=== PATIENT | male | born 1930 | race Caucasian/White ===

== ENCOUNTER 2018-04-13 05:15 | Inpatient (IN) ==
[2018-04-13] MEDS ORDERED: Chlorhexidine Gluconate 2% 1 Pack (2 Cloths) TOPICAL ONE (05:49)
[2018-04-13] MEDS ORDERED: Metoprolol Tartrate 25 MG Tablet PO ONE (05:49)
[2018-04-13] MEDS ORDERED: Insulin Regular (For Infusion) 100 UNIT in Sodium Chlor 0.9% Inj 99 ML IV.CONT PRN ×2 (05:51→15:00)
[2018-04-13] MEDS ORDERED: Dextrose 50% in Water 50 ML Vial IV.PUSH PRN ×2 (05:51→12:59)
[2018-04-13] MEDS ORDERED: Sodium Chlor 0.9% Inj 500 ML IV.SIG SCH (06:00)
[2018-04-13] MEDS ORDERED: Chlorhexidine 4% Topical 120 APPLIC/120 ML Bottle TOPICAL SCH (06:00)
[2018-04-13] MEDS ORDERED: Heparin - SQ 10,000 UNITS/ML Vial ONE (06:11)
[2018-04-13] MEDS ORDERED: ceFAZolin 2 GM Premix Inj 2 GM/50 ML PIGGYBACK IV.SIG ONE (06:12)
[2018-04-13 06:51] LABS: INR 1.1 Ratio; Prothrombin Time 11.6 sec (9.8-11.6)
[2018-04-13] MEDS ORDERED: CUST1000P IRRIGATION ONE (07:01)
[2018-04-13] MEDS ORDERED: Albumin Human 25% Inj 50 ML IV.SIG ONE (07:02)
[2018-04-13] MEDS ORDERED: Heparin 10,000 UNITS/10 ML Vial (for IV use) ONE (07:03)
[2018-04-13] MEDS ORDERED: Calcium Chloride Inj 1 GM/10 ML Syringe IV.CONT ONE (07:40)
[2018-04-13] MEDS ORDERED: Sodium Chlor 0.9% Inj 200 ML IV.CONT ONE (07:40)
[2018-04-13] MEDS ORDERED: Lidocaine PF 1% Inj 5 ML Syringe OTHER ONE (07:40)
[2018-04-13] MEDS ORDERED: Sodium Chlor 0.9% Inj 250 ML IV.CONT ONE (07:40)
[2018-04-13] MEDS ORDERED: Aminocaproic Acid Inj 5,000 MG/20 ML Vial IV.CONT ONE (07:40)
[2018-04-13] MEDS ORDERED: Phenylephrine/NS 1000 MCG/10ML Syringe IV.PUSH ONE (07:40)
[2018-04-13] MEDS ORDERED: Protamine Sulfate Inj 250 MG/25 ML Vial IV.CONT ONE (07:40)
[2018-04-13] MEDS ORDERED: Heparin - SQ 10,000 UNITS/ML Vial OTHER ONE (07:40)
[2018-04-13] MEDS ORDERED: Dexmedetomidine Inj 200 MCG/2 ML Vial IV.CONT ONE (07:40)
[2018-04-13] MEDS ORDERED: Normosol-R pH 7.4 Inj 2,000 ML IV.CONT ONE (07:40)
[2018-04-13] MEDS ORDERED: Sodium Chloride 0.9% Irr Bot 500 ML, ceFAZolin Inj 500 MG IRRIGATION ONE ×2 (09:00)
[2018-04-13] MEDS ORDERED: ceFAZolin 2 GM Premix Inj 2 GM/50 ML PIGGYBACK IV.SIG SCH (09:00)
[2018-04-13] MEDS ORDERED: Morphine Sulfate Inj 2 MG/ML Vial IV.PUSH PRN (12:59)
[2018-04-13] MEDS ORDERED: Metoprolol Inj 5 MG/5 ML Vial IV.PUSH PRN (12:59)
[2018-04-13] MEDS ORDERED: Dexmedetomidine Inj 200 MCG in Sodium Chlor 0.9% Inj 48 ML IV.CONT PRN (12:59)
[2018-04-13] MEDS ORDERED: fentaNYL Citrate Inj 100 MCG/2 ML Ampul IV.PUSH PRN (12:59)
[2018-04-13] MEDS ORDERED: Post-op Orders (for Pharmacy) OTHER STA (12:59)
[2018-04-13] MEDS ORDERED: RESP: Racemic Epinephrine 2.25% 0.5 ML Neb NEB PRN (12:59)
[2018-04-13] MEDS ORDERED: Acetaminophen 325 MG Tablet PO PRN (12:59)
[2018-04-13] MEDS ORDERED: Calcium Chloride Inj 1 GM/10 ML Syringe IV.PUSH PRN (12:59)
[2018-04-13] MEDS ORDERED: Magnesium Sulfate Inj 2 GM in Sodium Chlor 0.9% Inj 96 ML IV.SIG PRN ×4 (12:59)
[2018-04-13] MEDS ORDERED: Potassium Chlor 20 mEq Premix 20 MEQ/100 ML PIGGYBACK IV.SIG PRN ×2 (12:59)
[2018-04-13] MEDS ORDERED: EPINEPHrine (1:1000) Inj 2 MG in Sodium Chlor 0.9% Inj 248 ML IV.CONT PRN (12:59)
[2018-04-13] MEDS ORDERED: Clevidipine Inj 25 MG/50 ML VIAL IV.CONT PRN (14:00)
[2018-04-13] MEDS ORDERED: fentaNYL Citrate Inj 250 MCG/5 ML Ampul ONE (14:05)
[2018-04-13] MEDS: Potassium Chlor 20 mEq Premix 20 MEQ/100 ML PIGGYBACK IV.SIG PRN ×3 (14:09→17:46)
--- NOTE | 2018-04-13 14:19 | XR ---
EXAM DATE: 04/13/2018 2:15 PM EST AGE/SEX: 87 years / Male INDICATIONS: Status post heart surgery with intubation. CLINICAL DATA: This is the patient's initial encounter. Patient reports that signs and symptoms have been present for 1 day and indicates a pain score of Nonresponsive. MEDICAL/SURGICAL HISTORY: Hypertension. None. COMPARISON: [facility] – [place], CHEST 2V PA&LAT, 04/10/2018. . FINDINGS: 2 AP supine portable views of the chest were obtained and demonstrate the patient is status post inte rval median sternotomy. Patient has been intubated with the endotracheal tube tip approximately 3 cm above the yunior. A nasogastric tube has been placed and is seen coursing through the esophagus into the stomach. There is been placement of a left internal jugular central venous line with the tip proj ected over the superior vena cava. There is no pneumothorax. The heart size is at the upper limits of normal and there are no confluent infiltrates or effusions. Atherosclerotic changes are again noted in the aorta. CONCLUSION: 1. Status post intubation and placement of left internal jugular central venous line with no pneumot horax. 2. Postoperative changes status post median sternotomy with no acute cardiopulmonary changes. Electronically signed by: Allen Dennis MD Board Certified Radiologist 04/13/2018 2:18 PM EST
--- NOTE | 2018-04-13 14:28 | P.PNCV ---
- Note Subjective/Hospital Course: 87yr old male , seen in office by Dr Ortiz 03/27/18, hx of mitral and tricuspid insufficiency. Recent Cath heart cath revealed normal coronaries. Initially evaluated in July 2016for progressive symptoms of fatigue and cough PMH: AFib, GERD, HTN, valvular heart disease, HTN, HLP, Pulm HTN, DM Type 2 pt was electively admitted for surgery Objective: Vital Signs - 24 hr 04/13/18 06:37 04/13/18 14:03 Temperature 98.2 F Pulse Rate 82 Respiratory Rate 10 L Blood Pressure 115/74 Pulse Oximetry 98 96 Labs: Laboratory Results - last 12 hr 04/13/18 04/13/18 04/13/18 05:46 06:15 06:30 PT 11.6 INR 1.1 Blood Type O Positive Blood Type Recheck Not needed Antibody Screen Negative MTS Gel Crossmatch See Detail
--- NOTE | 2018-04-13 14:34 | P.DCO ---
- Diagnosis (1) Atrial fibrillation Status: Chronic (2) Diabetes mellitus Status: Chronic (3) GERD (gastroesophageal reflux disease) Status: Chronic (4) Mitral valve prolapse Status: Chronic (5) S/P MVR (mitral valve replacement) Status: Acute (6) S/P left atrial appendage ligation Status: Acute (7) S/P tricuspid valve repair Status: Acute - Home Health Nursing Order: Medical education, Signs/symptoms of disease process, Diabetic education , Wound care and dressing changes, Nursing assessment with vital signs Instructions: PREVENA Single Use Negative Wound Therapy System Caregiver Instruction Sheet 1. A Prevena dressing system was applied to the chest incision during surgery , to promote wound healing. It works via a suction device (negative pressure wound therapy) to remove low to moderate levels of exudate (drainage) and infectious materials. We recommend that the device stay in place for up to seven days, from day of surgery. 2. Day of Surgery____2/ Day of Removal ___/09/01 3. The dressing should only be removed by a health manager wound care. Please arrange removal of device to coincide with Home Health visit and or with Nursing staff at Rehab 4. If skin reddening or irritation of skin occurs, or excessive drainage, please notify the Cardiovascular Surgeons office at [phone]. 5. Light showering is permissible; however the pump should be disconnected and placed in safe location, where it will not get wet. The dressing should not be exposed to direct spray or submerged in water. No bath tub / shower only. Ensure the end of the tubing attached to the dressing is facing down so that water does not enter the top of the tube. 6. To remove Prevena dressing: press purple button to turn off device / remove the suction. Then disconnect the tubing from the pump. The fixation strips should be stretched away from the skin and the dressing lifted at one corner and peeled back until it has been fully removed. 7. After removal, it is ok to shower daily using liquid dial soap and clean wash cloth, rinse and pat dry, and leave incision open to air dry. For any concerns regarding Prevena dressing, and or wounds, please contact Agustina Wallace, patient navigator at [phone] or notify the Cardiovascular Surgeons office at [phone]. Heart and Vascular Surgery patients *Special attention to sternal dressing Mandatory frequency Assess and evaluation, 4 days in a row The next week 3X week 2 times a week for 4 weeks 1 time a week for 5 weeks Schedule Heart and Vascular patients for full 60 day certification period Initial visit Review Open Heart Surgery Discharge Instructions (Sternal precautions, Activity, Elastic hose, Incision care, Driving, Incentive spirometry, Smoking, [place], Work and other) Need Betadine to paint incision Medication reconciliation Importance of follow up care/ check on appointments Make calendar record temperature daily When to call [facility] at Home nurse, review instructions, phone list Incentive Spirometry, demonstration Visit 1- Begin discharge instruction for patient family and/ or caregiver using teach back method- Signs and symptoms of infection Disease characteristics Medicines and side effects Foods and nutrition/ appetite Infection control/ hand washing/ hygiene Visit 2- Continue teaching Discharge instructions- include additional information on smoking cessation , sternal dressing (sternal vac) Visit 3- Continue teaching- Cough and deep breathing, incision monitoring. Choose my plate Visit 4- Continue teaching- Discuss limitations Discuss how they are feeling Discuss progress toward goals Remaining visits- continue teaching and monitoring For any questions please call : Tuesday 8am-5pm Heart & Vascular Surgery Office ( Dr. Solomon & Dr. Agosto), After Hours / Nights (5pm -8am) Weekends and Holidays Please call [facility] Cardiac Intermediate Care Unit (CIC) Charge Nurse Incentive spirometry Q1 hr x 10, while awake, also use acapella device hourly whole awake Sternal Breast Bone Precautions: NO pushing or pulling, ( pt must use sternal pillow to support chest with all activities and with coughing ( takes up to 3 months breast bone to heal ) Daily incision care: ok to shower daily, no tub bath. Wash all incisions with liquid dial soap, clean wash cloth to each site, rinse and pat dry. Observe for any signs of infection, such as drainage which is dark yellow, garcia, green or foul smelling. Immediately report to the surgeon any drainage from the chest incision, or legs, and for any abnormal drainage from the chest tube sites. Notify surgeon if any temp >101.5 degrees F. When specialty dressing removed/ or if you do not have one, continue to shower daily as above, then rinse and pat incision dry and paint with betadine daily x 5 days. Allow steri strips to fall off if you have any. Avoid lotions, creams, salves, oils, etc. for the first month Please see attached forms for additional instructions regarding post Open Heart specialty wound vacuum dressings. FRANCISCA or Prevena , Dressing to be removed by Nursing staff on ___04/20/18____ F/U appointment: as per DC instructions: PCP in 2 weeks, CV surgeon 2 weeks, Silk Spotter 3-4 weeks For any questions regarding incisions/ dressing / meds / post op care or above Symptoms, Tuesday 8am-5pm Heart & Vascular Surgery Office ( Dr. Solomon & Dr. Agosto), After Hours / Nights (5pm -8am) Weekends and Holidays Please call [facility] Cardiac Intermediate Care Unit (CIC) Charge Nurse - Case Management Consult Case Management Consult-Home Health: Yes - Certification I have seen patient Topher Soriano on 04/13/18. My clinical findings support the need for the requested home health care services because: Deconditioned with increased weakness I certify that my clinical findings support that this patient is homebound because: Post-op weakness (2) Diabetes mellitus Qualifiers: Diabetes mellitus type: type 2
--- NOTE | 2018-04-13 14:42 | P.OP ---
Date of procedure: 04/13/18 Anesthesia: HENRIETTAA Surgeon: Jessica Solomon MD Operation and Findings: PREOPERATIVE DIAGNOSES 1. Severe Mitral Insufficiency 2. Moderate Tricuspid Insufficiency 3. Chronic Atrial Fibrillation POSTOPERATIVE DIAGNOSES Same SURGICAL PROCEDURE 1. Mitral Valve Replacement with a 27 mm Medtronic Mosaic Tissue Valve. 2. Tricuspid Valve Repair with a 30 mm Contour 3D Medtronic Annuloplasty Ring 3. Left Atrial Appendage Excision 4. Right Femoral Artery Catheter elastic attacher chainstitch Tarah Jaime [facility] General endotracheal. AIR BRUSH ARTIST Gennaro Francois CRNA, Gregoria Aguayo MD PREPARATION ChloraPrep. NEEDLE, SPONGE AND INSTRUMENT COUNT Correct. DRAINS Two 32-Icelandic mediastinal tube. COMPLICATIONS None. INDICATIONS The patient is an 87-year-old with severe mitral regurgitation moderate tricuspid insufficiency, presenting for surgical correction of the above pathology. DESCRIPTION OF PROCEDURE The patient was brought to the operating room and placed supine on the OR table. Following the induction of adequate general endotracheal anesthesia and placement of appropriate monitoring devices, the patient was then prepped and draped in the standard sterile fashion. Median sternotomy was performed, the pericardium was divided in the midline and the cradle created. The patient was systemically heparinized and anticoagulation monitored by serial ACT measurements. Then 2 pursestring sutures of 2-0 Ethibond were placed on the aorta proximal to the takeoff of the innominate artery, a purse-string of 4-0 Prolene was placed on the superior vena cava and a final 2-0 Ethibond was placed on the right atrium for the inferior vena cava. At this point, aortic and venous cannulae were introduced and attached to the arterial and venous components of the bypass circuit respectively. Antegrade cardioplegia cannula was also placed. The patient was placed on cardiopulmonary bypass and core cooling initiated to a temperature of 34 degrees centigrade. The left atrial appendage was then excised using the surgical stapler device. The crossclamp was applied and 1800 mls of antegrade cardioplegia solution ( Assisted HTK) was given in addition to topical cooling with slushed saline. Upon achieving adequate diastolic arrest of the heart a right atriotomy was performed. Transeptal approach to the mitral valve was taken. 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 The leaflets were additionally very myxomatous with associated annular calcification. Therefore plans were made to proceed with replacement of the mitral valve. The anterior leaflet and all of its chordae were preserved as was the posterior leaflet. Horizontal mattress sutures of interrupted 2-0 Ethibond were placed on the mitral annulus with pledgets on the atrial side. After adequate sizing, a 27 mm Medtronic mosaic tissue Mitral valve was brought in the surgical field and the sutures passed through the skirt and the valve was situated and anchored with the Cor-Knot device. This appeared to be a good fit. The septum closed closed in 2 layers. This was with 4-0 Prolene; the 1st layer being horizontal mattress, the 2nd layer being running baseball stitch. Attention was then turned towards the tricuspid valve. Saline and injection revealed moderate insufficiency. Interrupted 2 Ethibond sutures were then placed circumferentially onto the tricuspid annulus with care being taken to spare half of the septal annulus from the anteroseptal commissure to the mid aspect of the septal annulus. After adequate sizing, a 30 mm Contour 3D Medtronic annuloplasty band was brought into the field and the sutures passed through it. This was seated using core knots. Following completion of this, saline testing revealed no evidence of any residual tricuspid insufficiency. Gradual rewarming was initiated and the right atrium was closed in two layers of 4-0 Prolene. The cross clamp was removed and upon achieving normothermic cardiac activity, patient was weaned from CPB without any difficulty. Transesophageal echocardiography revealed a well-situated mitral prosthesis with no evidence of perivalvular leak and no mitral stenosis or regurgitation as well as satisfactory repair of the tricuspid valve with no residual insufficiency. Protamine was given. Decannulation was performed and all sites were inspected for hemostasis. At this point the closure was undertaken. The pericardium was reapproximated in the midline. One 32-Fr chest tube was placed, and the sternum was reapproximated using stainless steel sternal wires. Due to dampening of the radial arterial line, at this point a right femoral 5 Icelandic sheath was placed using the standard Seldinger technique to monitor arterial blood pressure. The musculo-fascial layer was then closed in 3 layers. The patient tolerated the procedure well and was transferred to open heart recovery in stable condition.
[2018-04-13] MEDS ORDERED: Calcium Chloride Inj 1 GM in Sodium Chlor 0.9% Inj 100 ML IV.SIG PRN (15:00)
[2018-04-13] MEDS: Ketorolac Inj 30 MG/ML (IVP) Vial IV.PUSH PRN (16:39)
[2018-04-13] MEDS: Albumin Human 5% Inj 250 ML IV.SIG PRN ×2 (17:07→20:01)
[2018-04-13] MEDS: ceFAZolin 2 GM Premix Inj 2 GM/50 ML PIGGYBACK IV.SIG SCH (21:53)
[2018-04-14] MEDS: Ketorolac Inj 30 MG/ML (IVP) Vial IV.PUSH PRN (00:43)
[2018-04-14] MEDS: ceFAZolin 2 GM Premix Inj 2 GM/50 ML PIGGYBACK IV.SIG SCH ×3 (04:19→21:09)
[2018-04-14 05:14] LABS: Hematocrit 26.1 % (39.0-51.0); Mean Corpuscular HGB Conc 34.4 % (32.0-36.0); Mean Corpuscular Hemoglobin 31.3 pg (27.0-34.0); Mean Corpuscular Volume 90.9 fL (80.0-100.0); Mean Platelet Volume 9.9 fL (7.0-11.0); Platelet Count 84 th/mm3 (150-450); Red Blood Count 2.87 mil/mm3 (4.50-5.90); Red Cell Distribution Width 14.8 % (11.6-17.2); White Blood Count 5.7 th/mm3 (4.0-11.0)
[2018-04-14 05:34] LABS: Anion Gap 11 meq/L (5-15); Blood Urea Nitrogen 23 mg/dL (7-18); Calcium 8.5 mg/dL (8.5-10.1); Carbon Dioxide 22.5 meq/L (21.0-32.0); Chloride 112 meq/L (98-107); Glomerular Filtration Rate Greater Than 89 mL/min (>89); Glucose,Random 72 mg/dL (74-106); Magnesium 2.4 mg/dL (1.5-2.5); Sodium 145 meq/L (136-145)
--- NOTE | 2018-04-14 06:47 | XR ---
EXAM DATE: 04/14/2018 5:56 AM EST AGE/SEX: 87 years / Male INDICATIONS: Post op CABG. CLINICAL DATA: This is the patient's subsequent encounter. Patient reports that signs and symptoms h ave been present for 2 days and indicates a pain score of 5/10. MEDICAL/SURGICAL HISTORY: Hypertension. None. COMPARISON: [facility] [place]ST 1V SINGLE AP, 04/13/2018. . FINDINGS: Left central line in superior vena cava. 2 mediastinal drains present centrally. Mild basilar atelect asis. Previous CABG. CONCLUSION: Left central line in superior vena cava. Basilar atelectasis and scarring. Central chest tubes presen t without pneumothorax. Patient has been extubated. Electronically signed by: West Melgar MD Board Certified Radiologist 04/14/2018 6:46 AM EST
--- NOTE | 2018-04-14 08:07 | ECG ---
Date Performed: 04/14/2018 Time Performed: 03:57:26 PTAGE: 87 years EKG: Probable accelerated junctional rhythm. Leftward axis Possible inferior infarct - age undet ermined Low QRS voltages in limb leads Abnormal ECG PREVIOUS TRACING : 04/10/2018 12.23 Compared to previous tracing, accelerated junctional rhythm has replaced atrial fibrillation. DOCTOR: Chepe Mulligan Interpretating Date/Time 04/14/2018 08:06:40
[2018-04-14] MEDS ORDERED: Dextrose 50% in Water 50 ML Vial IV.PUSH PRN (09:04)
[2018-04-14] MEDS ORDERED: Bisacodyl 10 MG Supp RECTAL PRN (09:04)
[2018-04-14] MEDS ORDERED: Sod Phosphate/Sod Biphosphate (Adult) Enema 133 ML Bottle RECTAL PRN (09:04)
[2018-04-14] MEDS: Insulin NovoLOG Aspart Correctional Sugar Inj SQ SCH ×4 (10:12→22:04)
--- NOTE | 2018-04-14 10:15 | P.PNCV ---
- Note Subjective/Hospital Course: 87yr old male , seen in office by Dr Ortiz 03/27/18, hx of mitral and tricuspid insufficiency. Recent Cath heart cath revealed normal coronaries. Initially evaluated in July 2016for progressive symptoms of fatigue and cough PMH: AFib, GERD, HTN, valvular heart disease, HTN, HLP, Pulm HTN, DM Type 2 pt was electively admitted for surgery 04/13 PREOPERATIVE DIAGNOSES 1. Severe Mitral Insufficiency 2. Moderate Tricuspid Insufficiency 3. Chronic Atrial Fibrillation SURGICAL PROCEDURE 1. Mitral Valve Replacement with a 27 mm Medtronic Mosaic Tissue Valve. 2. Tricuspid Valve Repair with a 30 mm Contour 3D Medtronic Annuloplasty Ring 3. Left Atrial Appendage Excision 4. Right Femoral Artery Catheter Placement extubated after surgery crystalloid 3000cc, 500cc cell saver , EBL 1000cc off all pressors , remains in SB/ junctional rhythm BP stable will hold on any BP meds, no BB received dose of diuretic today / was on coumadin at home on simple mask / will need pulm toielting OOB later today, fem line dc this am may need rehab at discharge not " pt is very [place] " PLT 84 ( from 210) hold plavix today eval for transfer to stepdown later today Objective: Vital Signs - 24 hr 04/13/18 13:47 04/13/18 14:03 04/13/18 15:00 Temperature 97.0 F L 97 F L Pulse Rate 61 53 L Respiratory Rate 10 L 10 L 15 Blood Pressure 81/38 L 94/52 L Pulse Oximetry 98 96 99 04/13/18 15:55 04/13/18 16:30 04/13/18 16:50 Temperature Pulse Rate 61 Respiratory Rate 18 20 Blood Pressure Pulse Oximetry 98 95 04/13/18 19:00 04/13/18 21:09 04/13/18 21:13 Temperature 98.1 F Pulse Rate 62 59 L Respiratory Rate 14 20 Blood Pressure 100/55 L Pulse Oximetry 95 95 04/13/18 23:00 04/14/18 00:00 04/14/18 03:00 Temperature 98.1 F 98.5 F Pulse Rate 58 L 57 L Respiratory Rate 18 16 16 Blood Pressure 111/57 L 108/53 L Pulse Oximetry 96 95 04/14/18 04:01 04/14/18 06:00 04/14/18 07:00 Temperature 98.2 F Pulse Rate 53 L 56 L Respiratory Rate 16 18 Blood Pressure 124/56 L Pulse Oximetry 95 95 04/14/18 09:34 04/14/18 09:35 Temperature Pulse Rate 58 L Respiratory Rate 15 Blood Pressure Pulse Oximetry 94 L GENERAL: A&O x 3 , faint confusion , SKIN: Warm and dry. prevena dressing to chest HEAD: Normocephalic. EYES: No scleral icterus. No injection or drainage. NECK: Supple, trachea midline. No JVD or lymphadenopathy. CARDIOVASCULAR: Regular rate and rhythm without murmurs, gallops, or rubs. soft SM RESPIRATORY: Breath sounds equal bilaterally. No accessory muscle use. diminished in bases , chest tube to wall suction, no air leak / drained 110cc/ 12 hrs GASTROINTESTINAL: Abdomen soft, non-tender, nondistended. MUSCULOSKELETAL: No cyanosis, or edema. BACK: Nontender without obvious deformity. No CVA tenderness. Labs: Laboratory Results - last 12 hr 04/13/18 04/14/18 04/14/18 21:57 00:38 02:32 WBC RBC Hgb Hct MCV MCH MCHC RDW Plt Count MPV Sodium Potassium Chloride Carbon Dioxide Anion Gap BUN Creatinine Estimated GFR POC Glucose 103 120 H 72 Random Glucose Calcium Magnesium 04/14/18 04/14/18 04/14/18 04:20 04:20 06:24 WBC 5.7 RBC 2.87 L Hgb 9.0 L Hct 26.1 L MCV 90.9 MCH 31.3 MCHC 34.4 RDW 14.8 Plt Count 84 L D MPV 9.9 Sodium 145 Potassium 4.0 Chloride 112 H Carbon Dioxide 22.5 Anion Gap 11 BUN 23 H Creatinine 0.64 Estimated GFR Greater than 89 POC Glucose 101 Random Glucose 72 L Calcium 8.5 Magnesium 2.4 04/14/18 04/14/18 07:12 09:16 WBC RBC Hgb Hct MCV MCH MCHC RDW Plt Count MPV Sodium Potassium Chloride Carbon Dioxide Anion Gap BUN Creatinine Estimated GFR POC Glucose 97 106 Random Glucose Calcium Magnesium Result Diagrams: 04/14/18 04:20 04/14/18 04:20 Telemetry: SB/ junctional - Plan (1) Atrial fibrillation Plan: s/p left atrial appendage excision (2) Diabetes mellitus Plan: start home meds in am (5) S/P MVR (mitral valve replacement) Plan: on coumadin at home may need to resume after chest tubes removed, will discuss with Dr Solomon Neuro: Awake has a sense of humor, very [place] ? mild confusion CV: Junctional/ SB gentle diuresis weaned off pressors last night hold on resuming home BP meds Resp: pulm toileting Nebs, ezpap wean 02 as tolerated GI: PPI GI motility meds Endo: resume home diabetic meds in am CM: eval possible rehab at discharge (2) Diabetes mellitus Qualifiers: Diabetes mellitus type: type 2
--- NOTE | 2018-04-14 11:18 | P.DIET ---
Nutritional Evaluation Screening comments: MDC for diet education s/p MVR (04/13) received. Patient Navigator to provide education. Consult RD if complexities with diet education arise.
[2018-04-14] MEDS: Polyethylene Glycol 3350 17 GM Packet PO SCH (15:21)
[2018-04-14] MEDS: Docusate Sodium 100 MG Capsule PO SCH (21:10)
[2018-04-15] MEDS: Insulin NovoLOG Aspart Correctional Sugar Inj SQ SCH ×5 (03:16→20:53)
[2018-04-15 04:53] LABS: Baso % (Auto) 0.2 % (0.0-2.0); Eos % (Auto) 0.1 % (0.0-4.0); Hematocrit 27.5 % (39.0-51.0); Hemoglobin 9.7 gm/dL (13.0-17.0); Lymph # (Auto) 0.6 th/mm3 (1.0-4.8); Lymph % (Auto) 8.3 % (9.0-44.0); Mean Corpuscular HGB Conc 35.1 % (32.0-36.0); Mean Corpuscular Hemoglobin 32.6 pg (27.0-34.0); Mean Corpuscular Volume 92.9 fL (80.0-100.0); Mean Platelet Volume 9.3 fL (7.0-11.0); Mono % (Auto) 12.6 % (0.0-8.0); Neut # (Auto) 6.1 th/mm3 (1.8-7.7); Neut % (Auto) 78.8 % (16.0-70.0); Platelet Count 93 th/mm3 (150-450); Red Blood Count 2.96 mil/mm3 (4.50-5.90); Red Cell Distribution Width 15.1 % (11.6-17.2); White Blood Count 7.7 th/mm3 (4.0-11.0)
[2018-04-15 05:06] LABS: Anion Gap 4 meq/L (5-15); Blood Urea Nitrogen 27 mg/dL (7-18); Calcium 8.1 mg/dL (8.5-10.1); Carbon Dioxide 30.9 meq/L (21.0-32.0); Chloride 108 meq/L (98-107); Glomerular Filtration Rate Greater Than 89 mL/min (>89); Glucose,Random 128 mg/dL (74-106); Magnesium 2.3 mg/dL (1.5-2.5); Potassium 4.1 meq/L (3.5-5.1); Sodium 143 meq/L (136-145)
[2018-04-15 05:09] LABS: INR 1.3 Ratio; Prothrombin Time 13.4 sec (9.8-11.6)
[2018-04-15] MEDS: Glimepiride 2 MG Tablet PO SCH (06:24)
[2018-04-15] MEDS: ceFAZolin 2 GM Premix Inj 2 GM/50 ML PIGGYBACK IV.SIG SCH (06:24)
--- NOTE | 2018-04-15 08:08 | P.PNCV ---
- Note Subjective/Hospital Course: 87yr old male , seen in office by Dr Ortiz 03/27/18, hx of mitral and tricuspid insufficiency. Recent Cath heart cath revealed normal coronaries. Initially evaluated in July 2016for progressive symptoms of fatigue and cough PMH: AFib, GERD, HTN, valvular heart disease, HTN, HLP, Pulm HTN, DM Type 2 pt was electively admitted for surgery 04/13 PREOPERATIVE DIAGNOSES 1. Severe Mitral Insufficiency 2. Moderate Tricuspid Insufficiency 3. Chronic Atrial Fibrillation SURGICAL PROCEDURE 1. Mitral Valve Replacement with a 27 mm Medtronic Mosaic Tissue Valve. 2. Tricuspid Valve Repair with a 30 mm Contour 3D Medtronic Annuloplasty Ring 3. Left Atrial Appendage Excision 4. Right Femoral Artery Catheter Placement extubated after surgery crystalloid 3000cc, 500cc cell saver , EBL 1000cc off all pressors , remains in SB/ junctional rhythm BP stable will hold on any BP meds, no BB received dose of diuretic today / was on coumadin at home on simple mask / will need pulm toielting OOB later today, fem line dc this am may need rehab at discharge not " pt is very [place] " PLT 84 ( from 210) hold plavix today eval for transfer to stepdown later today 04/15 Remains clinically and hemodynamically stable Awaiting transfer to see PCU Maintain chest tube for now Continue diuresis Objective: Vital Signs - 24 hr 04/14/18 09:34 04/14/18 09:35 04/14/18 11:00 Temperature 98.6 F Pulse Rate 58 L 64 Respiratory Rate 15 18 Blood Pressure 124/57 L Pulse Oximetry 94 L 93 L 04/14/18 13:24 04/14/18 15:00 04/14/18 19:00 Temperature 98.8 F 98.3 F Pulse Rate 62 68 64 Respiratory Rate 15 18 18 Blood Pressure 127/60 116/64 Pulse Oximetry 92 L 93 L 04/14/18 20:00 04/14/18 20:25 04/14/18 23:00 Temperature 98.3 F Pulse Rate 62 60 Respiratory Rate 20 18 Blood Pressure 126/56 L Pulse Oximetry 93 L 93 L 04/15/18 00:00 04/15/18 03:00 Temperature 98.2 F Pulse Rate 54 L Respiratory Rate 18 18 Blood Pressure 113/60 Pulse Oximetry 93 L Labs: Laboratory Results - last 12 hr 04/14/18 04/15/18 04/15/18 22:04 03:16 04:25 WBC 7.7 RBC 2.96 L Hgb 9.7 L Hct 27.5 L MCV 92.9 MCH 32.6 MCHC 35.1 RDW 15.1 Plt Count 93 L MPV 9.3 Prelim Diff (Auto) Slide review pending Neut % (Auto) 78.8 H Lymph % (Auto) 8.3 L Frontier % (Auto) 12.6 H Eos % (Auto) 0.1 Baso % (Auto) 0.2 Neut # (Auto) 6.1 Lymph # (Auto) 0.6 L Frontier # (Auto) 1.0 H Eos # (Auto) 0.0 Baso # (Auto) 0.0 Differential Comment . PT INR Sodium Potassium Chloride Carbon Dioxide Anion Gap BUN Creatinine Estimated GFR POC Glucose 111 H 116 H Random Glucose Calcium Magnesium 04/15/18 04/15/18 04/15/18 04:25 04:25 06:30 WBC RBC Hgb Hct MCV MCH MCHC RDW Plt Count MPV Prelim Diff (Auto) Neut % (Auto) Lymph % (Auto) Frontier % (Auto) Eos % (Auto) Baso % (Auto) Neut # (Auto) Lymph # (Auto) Frontier # (Auto) Eos # (Auto) Baso # (Auto) Differential Comment PT 13.4 H INR 1.3 Sodium 143 Potassium 4.1 Chloride 108 H Carbon Dioxide 30.9 Anion Gap 4 L BUN 27 H Creatinine 0.76 Estimated GFR Greater than 89 POC Glucose 138 H Random Glucose 128 H Calcium 8.1 L Magnesium 2.3 Result Diagrams: 04/15/18 04:25 04/15/18 04:25 - Plan (1) Atrial fibrillation Plan: s/p left atrial appendage excision (2) Diabetes mellitus Plan: start home meds in am (5) S/P MVR (mitral valve replacement) Plan: on coumadin at home may need to resume after chest tubes removed, will discuss with Dr Sloomon Neuro: Awake has a sense of humor, very [place] ? mild confusion CV: Junctional/ SB gentle diuresis weaned off pressors last night hold on resuming home BP meds Resp: pulm toileting Nebs, ezpap wean 02 as tolerated GI: PPI GI motility meds Endo: resume home diabetic meds in am CM: eval possible rehab at discharge (2) Diabetes mellitus Qualifiers: Diabetes mellitus type: type 2
[2018-04-15] MEDS ORDERED: Polyethylene Glycol 3350 17 GM Packet PO SCH (09:00)
[2018-04-15] MEDS: Polyethylene Glycol 3350 17 GM Packet PO SCH (09:21)
[2018-04-15] MEDS: Docusate Sodium 100 MG Capsule PO SCH ×2 (09:22→20:54)
[2018-04-15] MEDS: Multivitamin/Minerals Therapeutic Tablet PO SCH (09:22)
[2018-04-16 05:43] LABS: INR 1.2 Ratio; Prothrombin Time 11.9 sec (9.8-11.6)
[2018-04-16] MEDS: Glimepiride 2 MG Tablet PO SCH (06:11)
[2018-04-16] MEDS: Docusate Sodium 100 MG Capsule PO SCH ×2 (09:34→20:31)
[2018-04-16] MEDS: Insulin NovoLOG Aspart Correctional Sugar Inj SQ SCH ×4 (09:34→20:33)
[2018-04-16] MEDS: Polyethylene Glycol 3350 17 GM Packet PO SCH (09:34)
[2018-04-16] MEDS: Multivitamin/Minerals Therapeutic Tablet PO SCH (09:34)
--- NOTE | 2018-04-16 09:37 | P.PNCV ---
- Note Subjective/Hospital Course: 87yr old male , seen in office by Dr Ortiz 03/27/18, hx of mitral and tricuspid insufficiency. Recent Cath heart cath revealed normal coronaries. Initially evaluated in July 2016for progressive symptoms of fatigue and cough PMH: AFib, GERD, HTN, valvular heart disease, HTN, HLP, Pulm HTN, DM Type 2 pt was electively admitted for surgery 04/13 PREOPERATIVE DIAGNOSES 1. Severe Mitral Insufficiency 2. Moderate Tricuspid Insufficiency 3. Chronic Atrial Fibrillation SURGICAL PROCEDURE 1. Mitral Valve Replacement with a 27 mm Medtronic Mosaic Tissue Valve. 2. Tricuspid Valve Repair with a 30 mm Contour 3D Medtronic Annuloplasty Ring 3. Left Atrial Appendage Excision 4. Right Femoral Artery Catheter Placement extubated after surgery crystalloid 3000cc, 500cc cell saver , EBL 1000cc off all pressors , remains in SB/ junctional rhythm BP stable will hold on any BP meds, no BB received dose of diuretic today / was on coumadin at home on simple mask / will need pulm toielting OOB later today, fem line dc this am may need rehab at discharge not " pt is very [place] " PLT 84 ( from 210) hold plavix today eval for transfer to stepdown later today 3/2 Remains clinically and hemodynamically stable Awaiting transfer to see PCU Maintain chest tube for now Continue diuresis 3/3 Clinically stable DC chest tubes today Resume Coumadin for baseline atrial fibrillation Discharge planning Objective: Vital Signs - 24 hr 04/15/18 11:00 04/15/18 15:00 04/15/18 16:10 Temperature 99 F 98.7 F Pulse Rate 61 62 85 Respiratory Rate 16 18 18 Blood Pressure 114/55 L 122/58 L Pulse Oximetry 95 95 04/15/18 19:00 04/15/18 20:00 04/15/18 22:48 Temperature 98.8 F Pulse Rate 59 L 95 H Respiratory Rate 18 16 Blood Pressure 122/59 L Pulse Oximetry 96 96 95 04/15/18 23:00 04/16/18 03:00 04/16/18 09:06 Temperature 97.6 F 97.6 F Pulse Rate 55 L 51 L 53 L Respiratory Rate 18 18 14 Blood Pressure 136/59 L 139/76 Pulse Oximetry 95 94 L 95 Labs: Laboratory Results - last 12 hr 04/13/18 04/16/18 04/16/18 05:46 05:05 09:31 PT 11.9 H INR 1.2 POC Glucose 193 H MTS Gel Crossmatch See Detail Result Diagrams: 04/15/18 04:25 04/15/18 04:25 - Plan (1) Atrial fibrillation Plan: s/p left atrial appendage excision (2) Diabetes mellitus Plan: start home meds in am (5) S/P MVR (mitral valve replacement) Plan: on coumadin at home may need to resume after chest tubes removed, will discuss with Dr Solomon Neuro: Awake has a sense of humor, very [place] ? mild confusion CV: Junctional/ SB gentle diuresis weaned off pressors last night hold on resuming home BP meds Resp: pulm toileting Nebs, ezpap wean 02 as tolerated GI: PPI GI motility meds Endo: resume home diabetic meds in am CM: eval possible rehab at discharge (2) Diabetes mellitus Qualifiers: Diabetes mellitus type: type 2
[2018-04-17 05:37] LABS: INR 1.1 Ratio; Prothrombin Time 11.3 sec (9.8-11.6)
[2018-04-17] MEDS: Glimepiride 2 MG Tablet PO SCH (06:05)
[2018-04-17] MEDS: Multivitamin/Minerals Therapeutic Tablet PO SCH (09:38)
[2018-04-17] MEDS: Docusate Sodium 100 MG Capsule PO SCH ×2 (09:39→20:55)
[2018-04-17] MEDS: Polyethylene Glycol 3350 17 GM Packet PO SCH (09:40)
[2018-04-17] MEDS: Insulin NovoLOG Aspart Correctional Sugar Inj SQ SCH ×4 (09:41→20:55)
--- NOTE | 2018-04-17 12:18 | P.PNCV ---
- Note Subjective/Hospital Course: 87yr old male , seen in office by Dr Ortiz 03/27/18, hx of mitral and tricuspid insufficiency. Recent Cath heart cath revealed normal coronaries. Initially evaluated in July 2016for progressive symptoms of fatigue and cough PMH: AFib, GERD, HTN, valvular heart disease, HTN, HLP, Pulm HTN, DM Type 2 pt was electively admitted for surgery 04/13 PREOPERATIVE DIAGNOSES 1. Severe Mitral Insufficiency 2. Moderate Tricuspid Insufficiency 3. Chronic Atrial Fibrillation SURGICAL PROCEDURE 1. Mitral Valve Replacement with a 27 mm Medtronic Mosaic Tissue Valve. 2. Tricuspid Valve Repair with a 30 mm Contour 3D Medtronic Annuloplasty Ring 3. Left Atrial Appendage Excision 4. Right Femoral Artery Catheter Placement extubated after surgery crystalloid 3000cc, 500cc cell saver , EBL 1000cc off all pressors , remains in SB/ junctional rhythm BP stable will hold on any BP meds, no BB received dose of diuretic today / was on coumadin at home on simple mask / will need pulm toielting OOB later today, fem line dc this am may need rehab at discharge not " pt is very [place] " PLT 84 ( from 210) hold plavix today eval for transfer to stepdown later today 04/15 Remains clinically and hemodynamically stable Awaiting transfer to see PCU Maintain chest tube for now Continue diuresis 04/16 Clinically stable DC chest tubes today Resume Coumadin for baseline atrial fibrillation Discharge planning 04/17 remains in afib rate 50's , no BB stop plavix , re-add home coumadin for his afib gentle diuresis today . + balance wean off 02 as tolerated continue PT/OOB sleepy, will space out pain meds plan for dc in am Objective: Vital Signs - 24 hr 04/16/18 13:25 04/16/18 15:00 04/16/18 19:00 Temperature 98.4 F 100.3 F H Pulse Rate 56 L 61 58 L Respiratory Rate 16 18 18 Blood Pressure 127/60 122/59 L Pulse Oximetry 92 L 94 L 04/16/18 20:00 04/16/18 21:18 04/16/18 23:00 Temperature 97.9 F Pulse Rate 60 53 L Respiratory Rate 18 18 Blood Pressure 115/57 L Pulse Oximetry 95 94 L 96 04/17/18 03:00 04/17/18 07:00 04/17/18 08:57 Temperature 98 F 97.7 F Pulse Rate 48 L 53 L 64 Respiratory Rate 18 18 21 Blood Pressure 130/59 L 159/74 H Pulse Oximetry 96 95 98 Labs: Laboratory Results - last 12 hr 04/17/18 04/17/18 04:45 08:39 PT 11.3 INR 1.1 POC Glucose 107 Result Diagrams: 04/15/18 04:25 04/15/18 04:25 - Plan (1) Atrial fibrillation Plan: s/p left atrial appendage excision (2) Diabetes mellitus Plan: start home meds in am (5) S/P MVR (mitral valve replacement) Plan: Neuro: Awake has a sense of humor, very [place] CV: Junctional/ SB gentle diuresis resuming home BP meds no BB Resp: pulm toileting Nebs, ezpap wean 02 as tolerated GI: PPI GI motility meds Endo: home diabetic meds CM: eval possible rehab at discharge (2) Diabetes mellitus Qualifiers: Diabetes mellitus type: type 2
[2018-04-17] MEDS: Lisinopril 10 MG Tablet PO SCH (15:21)
[2018-04-18 05:45] LABS: Hematocrit 25.7 % (39.0-51.0); Hemoglobin 8.9 gm/dL (13.0-17.0); Mean Corpuscular HGB Conc 34.6 % (32.0-36.0); Mean Corpuscular Hemoglobin 31.6 pg (27.0-34.0); Mean Corpuscular Volume 91.1 fL (80.0-100.0); Mean Platelet Volume 8.9 fL (7.0-11.0); Platelet Count 170 th/mm3 (150-450); Red Blood Count 2.82 mil/mm3 (4.50-5.90); Red Cell Distribution Width 14.8 % (11.6-17.2); White Blood Count 5.9 th/mm3 (4.0-11.0)
[2018-04-18 05:49] LABS: INR 1.1 Ratio; Prothrombin Time 11.1 sec (9.8-11.6)
[2018-04-18 06:04] LABS: Anion Gap 6 meq/L (5-15); Blood Urea Nitrogen 20 mg/dL (7-18); Calcium 7.8 mg/dL (8.5-10.1); Carbon Dioxide 27.6 meq/L (21.0-32.0); Chloride 107 meq/L (98-107); Glomerular Filtration Rate Greater Than 89 mL/min (>89); Glucose,Random 93 mg/dL (74-106); Magnesium 2.3 mg/dL (1.5-2.5); Potassium 4.1 meq/L (3.5-5.1); Sodium 141 meq/L (136-145)
[2018-04-18] MEDS: Glimepiride 2 MG Tablet PO SCH (06:29)
[2018-04-18 07:21] VITALS: PULSE 49
[2018-04-18] MEDS: Insulin NovoLOG Aspart Correctional Sugar Inj SQ SCH (08:23)
[2018-04-18] MEDS: Docusate Sodium 100 MG Capsule PO SCH (08:23)
[2018-04-18] MEDS: Multivitamin/Minerals Therapeutic Tablet PO SCH (08:23)
[2018-04-18] MEDS: Lisinopril 10 MG Tablet PO SCH (08:23)
[2018-04-18] MEDS: Polyethylene Glycol 3350 17 GM Packet PO SCH (08:24)
[2018-04-18 08:29] VITALS: RESP 20; O2SAT 93
--- NOTE | 2018-04-18 09:43 | P.DS ---
Date of admission: 04/13/18 05:15 Primary care physician: Teri Mcwilliams MD Attending physician on discharge: Maribell Agosto Anticipated date of discharge: 04/18/18 Brief History from admission: 87yr old male , seen in office by Dr Ortiz 03/27/18, hx of mitral and tricuspid insufficiency. Recent Cath heart cath revealed normal coronaries. Initially evaluated in July 2016for progressive symptoms of fatigue and cough PMH: AFib, GERD, HTN, valvular heart disease, HTN, HLP, Pulm HTN, DM Type 2 pt was electively admitted for surgery 04/13 PREOPERATIVE DIAGNOSES 1. Severe Mitral Insufficiency 2. Moderate Tricuspid Insufficiency 3. Chronic Atrial Fibrillation Patient update on day of discharge: doing well on room air no BB or amiodarone hx of atrial fib coumadin resumed stable for dc home DS: Diagnosis - Discharge Diagnosis (1) Atrial fibrillation Status: Chronic (2) Diabetes mellitus Status: Chronic (3) GERD (gastroesophageal reflux disease) Status: Chronic (4) Mitral valve prolapse Status: Chronic (5) S/P MVR (mitral valve replacement) Status: Acute (6) S/P left atrial appendage ligation Status: Acute (7) S/P tricuspid valve repair Status: Acute (8) Tricuspid valve insufficiency Status: Acute DS: Medications - Discharge Medications Prescriptions: docusate sodium [DOK] 100 mg PO BID #60 cap hydrocodone-acetaminophen 1 tab PO Q6H PRN #30 tab PRN Reason: Pain Scale 1 To 5 [id number]-calcium-mins [Thera M Plus (ferrous fumarat)] 1 tab PO DAILY # 30 tab DS: Summary Hospital Course: pt was electively admitted for surgery 04/13 PREOPERATIVE DIAGNOSES 1. Severe Mitral Insufficiency 2. Moderate Tricuspid Insufficiency 3. Chronic Atrial Fibrillation SURGICAL PROCEDURE 1. Mitral Valve Replacement with a 27 mm Medtronic Mosaic Tissue Valve. 2. Tricuspid Valve Repair with a 30 mm Contour 3D Medtronic Annuloplasty Ring 3. Left Atrial Appendage Excision 4. Right Femoral Artery Catheter Placement extubated after surgery crystalloid 3000cc, 500cc cell saver , EBL 1000cc off all pressors , remains in SB/ junctional rhythm BP stable will hold on any BP meds, no BB received dose of diuretic today / was on coumadin at home on simple mask / will need pulm toielting OOB later today, fem line dc this am may need rehab at discharge not " pt is very [place] " PLT 84 ( from 210) hold plavix today eval for transfer to stepdown later today 04/15 Remains clinically and hemodynamically stable Awaiting transfer to see PCU Maintain chest tube for now Continue diuresis 04/16 Clinically stable DC chest tubes today Resume Coumadin for baseline atrial fibrillation Discharge planning 04/17 remains in afib rate 50's , no BB stop plavix , re-add home coumadin for his afib gentle diuresis today . + balance wean off 02 as tolerated continue PT/OOB sleepy, will space out pain meds plan for dc in am 04/18 coumadin resumed on room air stable for dc home no BB 03/18 bradycardia - Time Spent with Patient Total time spent providing and/or coordinating discharge services: Greater than 30 minutes - Quality: VTE Deep Vein Thrombosis/Pulmonary Embolism Present on Admission: No Exam Vital signs: Vital Signs 04/17/18 11:00 04/17/18 12:36 04/17/18 15:00 Temperature 97.8 F 97.7 F Pulse Rate 54 L 63 55 L Respiratory Rate 18 20 18 Blood Pressure 130/63 128/62 Pulse Oximetry 96 95 04/17/18 19:00 04/17/18 20:23 04/17/18 23:00 Temperature 98.2 F 98.4 F Pulse Rate 56 L 60 52 L Respiratory Rate 16 18 16 Blood Pressure 113/56 L 121/55 L Pulse Oximetry 95 93 L 92 L 04/18/18 03:00 04/18/18 07:00 04/18/18 08:27 Temperature 98.2 F Pulse Rate 48 L 49 L 49 L Respiratory Rate 16 20 Blood Pressure 149/67 H Pulse Oximetry 92 L 93 L Intake & Output 04/17/18 04/18/18 04/18/18 18:59 06:59 18:59 Intake Total 740 / 740 240 / 240 Output Total 500 / 500 Balance 740 / 740 -260 / -260 Weight 80.5 kg Intake: Oral 740 / 740 240 / 240 Output: Urine 500 / 500 Other: # Voids 5 1 Date of Last Bowel Movement 04/16/18 04/17/18 # Bowel Movements 1 - Constitutional no acute distress - Routine HEENT Exam Head: Present: normocephalic, atraumatic - Routine Neck Exam Present: supple, full ROM - Routine Chest/Breast/Axilla Exam Chest wall: Present: tenderness - Routine Respiratory Exam Present: accessory muscle use, CTA bilaterally - Routine Cardiovascular Exam Present: bradycardia, irregular rhythm - Routine Abdominal Exam Present: soft, normoactive bowel sounds - Routine Extremities Exam Present: full ROM, pulses intact, normal capillary refill - Routine Skin Exam Present: intact, dry, wounds Comments: sternal incision intact and well approximated - Routine Neurological Exam Present: alert, oriented X3, CN II-XII intact Results Procedures completed during hospitalization: Date of procedure: 04/13/18 Anesthesia: GETA Surgeon: Jessica Solomon MD Operation and Findings: PREOPERATIVE DIAGNOSES 1. Severe Mitral Insufficiency 2. Moderate Tricuspid Insufficiency 3. Chronic Atrial Fibrillation POSTOPERATIVE DIAGNOSES Same SURGICAL PROCEDURE 1. Mitral Valve Replacement with a 27 mm Medtronic Mosaic Tissue Valve. 2. Tricuspid Valve Repair with a 30 mm Contour 3D Medtronic Annuloplasty Ring 3. Left Atrial Appendage Excision 4. Right Femoral Artery Catheter Placement Completed studies during hospitalization: Pending at discharge 04/13/18 15:12 Surgical [PTH] Routine Labs on day of discharge: Labs from last 24 hours 04/18/18 04/18/18 04/18/18 08:16 05:21 05:21 WBC RBC Hgb Hct MCV MCH MCHC RDW Plt Count MPV PT 11.1 INR 1.1 Sodium 141 Potassium 4.1 Chloride 107 Carbon Dioxide 27.6 Anion Gap 6 BUN 20 H Creatinine 0.71 Estimated GFR Greater than 89 POC Glucose 93 Random Glucose 93 Calcium 7.8 L Magnesium 2.3 04/18/18 04/17/18 04/17/18 05:21 20:55 17:28 WBC 5.9 RBC 2.82 L Hgb 8.9 L Hct 25.7 L MCV 91.1 MCH 31.6 MCHC 34.6 RDW 14.8 Plt Count 170 D MPV 8.9 PT INR Sodium Potassium Chloride Carbon Dioxide Anion Gap BUN Creatinine Estimated GFR POC Glucose 88 137 H Random Glucose Calcium Magnesium 04/17/18 12:24 WBC RBC Hgb Hct MCV MCH MCHC RDW Plt Count MPV PT INR Sodium Potassium Chloride Carbon Dioxide Anion Gap BUN Creatinine Estimated GFR POC Glucose 90 Random Glucose Calcium Magnesium - Impressions ITS Impressions Chest X-Ray 04/14/18 05:00 CONCLUSION: Left central line in superior vena cava. Basilar atelectasis and scarring. Central chest tubes present without pneumothorax. Patient has been extubated. Discharge Plan - Discharge Disposition Patient Disposition: W/Home Health Service - Discharge Condition Condition: Good - Discharge Order Discharge Orders: Discharge Order (Routine); Ordered 04/18/18 Ordered By: Maile Rodriguez - Discharge Details Anticipated Discharge Date: 04/18/18 - Physicians Team Primary Care Provider: Teri Mcwilliams Attending Provider: Jessica Solomon Other Providers: Sommer Novoa - Rxs /Orders / Referrals /Forms Prescriptions: New aspirin [Aspirin Low Dose] 81 mg Tablet,Delayed Release (Dr/Ec) 81 mg PO DAILY Qty: 100 RF: 0 docusate sodium [DOK] 100 mg Capsule 100 mg PO BID Qty: 60 RF: 0 hydrocodone-acetaminophen 5-325 mg Tablet 1 tab PO Q6H PRN (Reason: Pain Scale 1 To 5) Qty: 30 RF: 0 [id number]-qcgc-ZL-calcium-mins [Thera M Plus (ferrous fumarat)] 9 mg iron-400 mcg Tablet 1 tab PO DAILY Qty: 30 RF: 2 Continue amlodipine 10 mg Tablet 10 mg PO HS atorvastatin 10 mg Tablet 10 mg PO DAILY cholecalciferol (vitamin D3) [Vitamin D3] 5,000 unit Tablet 5,000 unit PO HS cyanocobalamin (vitamin B-12) [Vitamin B-12] 2,000 mcg Tablet Extended Release 2,000 mcg PO HS furosemide 40 mg Tablet 40 mg PO DAILY glimepiride 2 mg Tablet 2 mg PO DAILY lisinopril 20 mg Tablet 20 mg PO DAILY magnesium 250 mg Tablet 500 mg PO DAILY metformin 500 mg Tablet Extended Release 24 Hr 500 mg PO QNOON potassium chloride 20 mEq Tablet Extended Release 20 meq PO DAILY ranitidine HCl 150 mg Tablet 150 mg PO BID warfarin [Coumadin] 3 mg Tablet 3 mg PO HS Discontinued hydrochlorothiazide 12.5 mg Tablet 12.5 mg PO DAILY Ambulatory Orders / Order Sets / DME: Prothrombin Time INR (Routine) Location: Determined by Patient Ordered By: Maile Rodriguez Referrals: Chepe Mulligan MD [Physician] - See Instructions ( Your appointment has been scheduled for [05/17/18] at [12:15 PM] If you cannot make this appointment, please call the office to reschedule ) Maile Rodriguez [ADVANCE RN PRACTITIONER] - See Instructions ( Your appointment has been scheduled for [05/09/18] at [10:00 am] If you cannot make this appointment, please call the office to reschedule ) Teri Mcwilliams MD [Primary Care Provider] - See Instructions ( Your appointment has been scheduled for [04/20/18] at [3:20 PM] If you cannot make this appointment, please call the office to reschedule ) - Discharge Instructions Additional Instructions: PREVENA Single Use Negative Wound Therapy System Caregiver Instruction Sheet 1. A Prevena dressing system was applied to the chest incision during surgery , to promote wound healing. It works via a suction device (negative pressure wound therapy) to remove low to moderate levels of exudate (drainage) and infectious materials. We recommend that the device stay in place for up to seven days, from day of surgery. 2. Day of Surgery____/ Day of Removal /09/01 3. The dressing should only be removed by a health care support representative. Please arrange removal of device to coincide with Home Health visit and or with Nursing staff at Rehab 4. If skin reddening or irritation of skin occurs, or excessive drainage, please notify the Cardiovascular Surgeons office at [phone]. 5. Light showering is permissible; however the pump should be disconnected and placed in safe location, where it will not get wet. The dressing should not be exposed to direct spray or submerged in water. No bath tub / shower only. Ensure the end of the tubing attached to the dressing is facing down so that water does not enter the top of the tube. 6. To remove Prevena dressing: press purple button to turn off device / remove the suction. Then disconnect the tubing from the pump. The fixation strips should be stretched away from the skin and the dressing lifted at one corner and peeled back until it has been fully removed. 7. After removal, it is ok to shower daily using liquid dial soap and clean wash cloth, rinse and pat dry, and leave incision open to air dry. For any concerns regarding Prevena dressing, and or wounds, please contact Agustina Wallace, patient navigator at [phone] or notify the Cardiovascular Surgeons office at [phone]. Incentive spirometry Q1 hr x 10, while awake, also use acapella device hourly whole awake Sternal Breast Bone Precautions: NO pushing or pulling, ( pt must use sternal pillow to support chest with all activities and with coughing ( takes up to 3 months breast bone to heal ) Daily incision care: ok to shower daily, no tub bath. Wash all incisions with liquid dial soap, clean wash cloth to each site, rinse and pat dry. Observe for any signs of infection, such as drainage which is dark yellow, garcia, green or foul smelling. Immediately report to the surgeon any drainage from the chest incision, or legs, and for any abnormal drainage from the chest tube sites. Notify surgeon if any temp >101.5 degrees F. When specialty dressing removed/ or if you do not have one, continue to shower daily as above, then rinse and pat incision dry and paint with betadine daily x 5 days. Allow steri strips to fall off if you have any. Avoid lotions, creams, salves, oils, etc. for the first month Please see attached forms for additional instructions regarding post Open Heart specialty wound vacuum dressings. FRANCISCA or Prevena , Dressing to be removed by Nursing staff on __04/20/18 F/U appointment: as per [place] instructions: PCP in 2 weeks, CV surgeon 2 weeks, Statistician Mathematical 3-4 weeks For any questions regarding incisions/ dressing / meds / post op care or above Symptoms, Tuesday 8am-5pm Heart & Vascular Surgery Office ( Dr. Solomon & Dr. Agosto), After Hours / Nights (5pm -8am) Weekends and Holidays Please call [facility] Cardiac [facility] Unit ([facility]) Charge Nurse
[2018-04-18 10:29] VITALS: BP 141/62; TEMP 98.8
== END 2018-04-18 12:57 | disposition home health service (06) | DRG 221 ==
LOC: HSDI 05:15 → HCVI 13:45 → HCPC 04-15 13:57
PROVIDERS: ADMIT Thoracic Surgery (Cardiothoracic Vascular Surgery); ATTEND Thoracic Surgery (Cardiothoracic Vascular Surgery)
CPT/HCPCS: 36415; 36430; 71010; 71020; 71045; 71046; 76937; 80048; 81001; 82948; 82962; 83735; 85025; 85027; 85610; 85730; 86850; 86900; 86901; 86923; 87641; 88305; 93005; 93312; 93318; 94002; 94010; 94150; 94640; 94650; 94651; 94656; 94664; 94665; 94667; 94668; 97110; 97116; 97162; 97530; J0131; J0171; J0690; J1644; J1815; J1817; J1885; J1940; J2150; J2250; J2370; J2720; J3010; J3370; J3475; J3480; J7050; J7120; P9016; P9045; P9047